=== PATIENT | female | born 1975 | race Hispanic/Latino ===

== ENCOUNTER 2022-01-11 15:00 | Emergency (ER) | payer SELFPAY ==
[~2022-01-11] VITALS: Ht 149.9 cm; Wt 89.9 kg
[2022-01-11] MEDS ORDERED: ONDANSETRON HCL INJ 2MG/ML 2ML 2 MG/ML VIAL IV STA ×2 (16:34→18:52)
[2022-01-11] MEDS ORDERED: KETOROLAC TROMETHAMINE 30 MG/ML VIAL IV STA (16:34)
[2022-01-11] MEDS ORDERED: SODIUM CHLORIDE 0.9% 1000ML 1,000 ML IV SCH (16:45)
[2022-01-11] MEDS ORDERED: SODIUM CHLORIDE 0.9% 1000ML 1,000 ML ONE (16:50)
[2022-01-11] MEDS ORDERED: IOPAMIDOL 370 MG/ML 100 ML INFUS..BTL INJ ONE (17:14)
[2022-01-11] MEDS ORDERED: DICYCLOMINE HCL 20 MG/2 ML VIAL IM ONE ×2 (17:30→17:43)
[2022-01-11] MEDS ORDERED: Morphine 4mg INJECTION 4 MG/ML INJ IV ONE (19:00)
[2022-01-11] MEDS ORDERED: SODIUM CHLORIDE 0.9% 500ML 500 ML IV ONE (19:30)
[2022-01-11] MEDS ORDERED: TAMSULOSIN HCL 0.4 MG CAP PO ONE (19:30)
[2022-01-11] MEDS ORDERED: CEFTRIAXONE 1 GM VIAL ONE (19:38)
[2022-01-11] MEDS ORDERED: SODIUM CHLORIDE 0.9% 500ML 500 ML ONE (19:38)
[2022-01-11] MEDS ORDERED: Morphine 4mg INJECTION 4 MG/ML INJ ONE (19:38)
[2022-01-11] MEDS ORDERED: ONDANSETRON HCL INJ 2MG/ML 2ML 2 MG/ML VIAL ONE (19:38)
[2022-01-11] MEDS ORDERED: TAMSULOSIN HCL 0.4 MG CAP ONE (19:38)
== END 2022-01-12 01:02 | disposition other institution (70) ==
LOC: FSED 15:07
DX: R10.32 Left lower quadrant pain (principal); N13.2 Hydronephrosis with renal and ureteral calculous obstruction; U07.1 COVID-19; R11.2 Nausea with vomiting, unspecified; D72.829 Elevated white blood cell count, unspecified
CPT/HCPCS: 74177; 80048 ×2; 80076 ×2; 81003 ×2; 81025; 85025 ×2; 96372; 96374; 96375; 99284; J0500; J0696; J1885; J2270; J2405; J7030; J7040; Q9967; U0002